=== PATIENT | male | born 1940 | race Caucasian/White ===

== ENCOUNTER 2020-05-23 07:29 | Inpatient (IN) | payer MEDICARE, BC ==
[~2020-05-23] VITALS: Ht 165.1 cm; Wt 74.4 kg
--- NOTE | 2020-05-23 08:00 | NUR ---
CALLED DR. PAN
--- NOTE | 2020-05-23 08:14 | NUR ---
MOVE SHEET SUBMITTED AND CALLED FOR DWAIN BED.
[2020-05-23 08:30] LABS: BASOPHILS # (AUTO) 0.1 /CMM (0.0-0.2); EOSINOPHILS % (AUTO) 4.6 % (0.0-6.0); HEMATOCRIT 37 % (39-51); HEMOGLOBIN 12.5 g/dL (13.5-17.5); LYMPHOCYTES % (AUTO) 40.7 % (20.0-44.0); MEAN CORPUSCULAR HGB CONC 34 g/dl (31.0-36.0); MEAN CORPUSCULAR VOLUME 91 fL (80-96); MONOCYTES # (AUTO) 0.8 /CMM (0.1-1.30); MONOCYTES % (AUTO) 10.7 % (2.0-12.0); NEUTROPHILS # (AUTO) 3.2 /CMM (1.8-8.9); PLATELET COUNT (AUTO) 289 /CMM (150-450); RED BLOOD CELL COUNT(AUTO) 4.09 MIL/uL (4.5-6.0); WHITE BLOOD COUNT (AUTO) 7.3 K/uL (4.3-11.0)
[2020-05-23] MEDS ORDERED: CITA20TA16 PO (08:53)
[2020-05-23] MEDS ORDERED: HYDR-4275 PO (08:53)
[2020-05-23] MEDS ORDERED: GABA300C PO (08:53)
[2020-05-23] MEDS ORDERED: MELA3TAB41 PO (08:53)
[2020-05-23] MEDS ORDERED: FOLI0.8C PO (08:53)
[2020-05-23] MEDS ORDERED: ASPI-1169 PO (08:53)
[2020-05-23] MEDS ORDERED: METH-406 PO (08:53)
[2020-05-23] MEDS ORDERED: MIRT-121 PO (08:53)
[2020-05-23] MEDS ORDERED: AMLO10TA4 PO (08:53)
--- NOTE | 2020-05-23 09:01 | NUR ---
[facility] CALLED [employer]ELOPER PAGED.
[2020-05-23 09:04] LABS: CALCIUM, SERUM 9.3 mg/dL (8.5-10.1); CREATININE 1.1 mg/dL (0.6-1.3); POTASSIUM 4.1 mmol/L (3.5-5.1)
[2020-05-23] MEDS ORDERED: MORPHINE SULFATE INJ 2 MG/ML DISP.SYRIN ONE (09:15)
[2020-05-23] MEDS ORDERED: MORPHINE SULFATE INJ 2 MG/ML DISP.SYRIN IV ONE (09:30)
--- NOTE | 2020-05-23 09:50 | NUR ---
ASSUMED CARE OF PATIENT. PATIENT IN BED.
--- NOTE | 2020-05-23 09:53 | NUR ---
PATIENT A/OX3, BREATHING EVEN AND UNLABORED, NO SOB NOTED. NEEDS ATTENDED. WILL CONTINUE TO MONITOR.
[2020-05-23] MEDS ORDERED: MAG HYDROX/AL HYDROX/SIMETH 30 ML UDC PO PRN (10:30)
[2020-05-23] MEDS ORDERED: ACETAMINOPHEN 325 MG TABLET PO PRN (10:30)
[2020-05-23] MEDS ORDERED: DOCUSATE SODIUM 100 MG CAPSULE PO PRN (10:30)
[2020-05-23] MEDS ORDERED: ONDANSETRON HCL/PF 4 MG/2 ML VIAL IVP PRN (10:30)
--- NOTE | 2020-05-23 12:07 | NUR ---
PER PATIENT, HE HAD "A COUPLE SIPS OF WATER" SURGERY MADE AWARE. PATIENT SIGNED CONSENTS FORM.
--- NOTE | 2020-05-23 12:32 | NUR ---
PATIENT PICKED UP BY SURGERY TEAM. PATIENT IN STABLE CONDITION. NO DISTRESS NOTED.
--- NOTE | 2020-05-23 12:33 | NUR ---
BELONGINGS LEFT IN THE ER, WILL TRANSFER TO INPATIENT ROOM.
[2020-05-23] MEDS ORDERED: MIDAZOLAM HCL 2 MG/2ML VIAL ONE (12:57)
[2020-05-23] MEDS ORDERED: FENTANYL PF 100MCG/2ML AMPUL ONE (12:57)
[2020-05-23] MEDS: GABAPENTIN 300 MG CAPSULE PO SCH ×2 (13:00→17:31)
[2020-05-23] MEDS ORDERED: LIDOCAINE 1% INJ 50 ML MDV IJ ONE (13:03)
[2020-05-23] MEDS ORDERED: IOHEXOL 240MG/ML 50 ML IV ONE (13:03)
[2020-05-23] MEDS ORDERED: HYDR-3973 PO (14:07)
--- NOTE | 2020-05-23 15:30 | NUR ---
RECEIVED PATIENT FROM RECOVERY. NURSE GAVE BEDSIDE REPORT FOR CONTINUATION OF CARE. VITAL SIGNS WITHIN NORMAL LIMITS
--- NOTE | 2020-05-23 15:42 | NUR ---
[facility] POSITIVE ON R ANALY Addendum: 05/23/20 at 1640 by WISAM TALLEY RN WRONG PATIENT
[2020-05-23 17:26] VITALS: BP 149/76
--- NOTE | 2020-05-23 18:47 | NUR ---
RN CLOSING NOTE PATIENT CURRENTLY IN BED, RESTING. PATIENT CURRENTLY ON ROOM AIR, SATURATING 97% AT THIS TIME. NO S/S OF RESPIRATORY DISTRESS. ALERT/ORIENTED X2. PATIENT SET UP ON CHARGE NURSE, NSR AT THIS TIME. R HAND IV SALINE LOCK. PATIENT DENIES PAIN AT THIS TIME. WILL ENDORSE TO SURGICAL CORSETIER NURSE FOR EDITH.
--- NOTE | 2020-05-23 19:30 | NUR ---
RN NOTE RECEIVED PATIENT IN BED, AO X 4, IN NO S/SX OF ACUTE DISTRESS AT THIS TIME. NO SOB NOTED. PATIENT'S BREATHING IS EVEN AND UNLABORED. SATURATION AT 98% ON ROOM AIR. PATIENT ON TELE MONITOR, READING V-PACING, HR IS 66. NOTED IV SITE AT R HAND, PATENT AND FLUSHING WELL, NO S/S OF INFECTION OR INFILTRATION. POST OPERATIVE WOUND DRESSING AT L CHEST WALL DRY AND INTACT. SLING NOTED AT EVAN. SAFETY MEASURES IMPLEMENTED. PATIENT BED ALARM IS ON. HEAD OF BED ELEVATED. BED IS LOCKED, IN LOWEST POSITION AND SIDE RAILS UP. CALL LIGHT WITHIN REACH OF THE PATIENT. WILL CONTINUE TO MONITOR AND REASSESS FOR ANY CHANGES.
[2020-05-23 20:00] VITALS: BP 150/95
[2020-05-23] MEDS: HYDROCODONE/APAP 5/325MG TABLET PO PRN (21:54)
[2020-05-23] MEDS ORDERED: MELATONIN 12 MG PO SCH (22:00)
[2020-05-23] MEDS ORDERED: AMLODIPINE BESYLATE 10 MG TABLET PO SCH (22:00)
[2020-05-24] VITALS: BP 143/54
[2020-05-24 04:00] VITALS: BP 103/51
--- NOTE | 2020-05-24 07:45 | NUR ---
RN OPENING NOTES PRESENT IN BED, A/OX4, ON ROOM AIR, SPO2 IS 99%, IV ON R ARM LINE PATENT AND FLUSHED, PACING SR ON TELE-MONITOR , HR 63. DENIES DISCOMFORT, SAFETY MEASURES IN PLACE, CALL LIGHT IN REACH, WILL CONT OM MONITOR
[2020-05-24 08:00] VITALS: BP 123/57
[2020-05-24] MEDS: GABAPENTIN 300 MG CAPSULE PO SCH (08:13)
[2020-05-24] MEDS: HYDROCODONE/APAP 5/325MG TABLET PO PRN (08:43)
[2020-05-24] MEDS ORDERED: METHOCARBAMOL (750MG) 750 MG TABLET PO SCH (09:00)
[2020-05-24] MEDS ORDERED: CITALOPRAM HYDROBROMIDE 20 MG TABLET PO SCH ×2 (09:00)
[2020-05-24] MEDS ORDERED: FOLIC ACID 1 MG TABLET PO SCH ×2 (09:00)
[2020-05-24] MEDS ORDERED: ASPIRIN 81 MG TAB.CHEW PO SCH (09:00)
[2020-05-24] MEDS ORDERED: METHOCARBAMOL (500MG) 500 MG TABLET PO SCH (09:00)
[2020-05-24] MEDS ORDERED: MIRTAZAPINE 15 MG TABLET PO SCH (09:00)
--- NOTE | 2020-05-24 12:01 | NUR ---
Report given to MARII Ortiz via phone ([phone]), discharge instructions and paperwork given to patient, awaiting for transportation at 1300
--- NOTE | 2020-05-24 12:53 | NUR ---
Discharge to facility, with [facility], confirmed patient ID, destination, VS taken, transferred to [facility], belongings included, IV line nd ID bands removed
== END 2020-05-24 13:02 | DRG 243 ==
LOC: ER 07:32 → TELE 13:00 → TELE1 15:49
PROVIDERS: ADMIT Registered Nurse; ATTEND Registered Nurse
PROC: 0JH606Z Insertion of Pacemaker, Dual Chamber into Chest Subcutaneous Tissue and Fascia, Open Approach (ICD-10-PCS; principal; 2020-05-23)
PROC: 02HK3JZ Insertion of Pacemaker Lead into Right Ventricle, Percutaneous Approach (ICD-10-PCS; 2020-05-23)
PROC: 02H63JZ Insertion of Pacemaker Lead into Right Atrium, Percutaneous Approach (ICD-10-PCS; 2020-05-23)
DX: I44.2 Atrioventricular block, complete (principal); I13.0 Hypertensive heart and chronic kidney disease with heart failure and stage 1 through stage 4 chronic kidney disease, or unspecified chronic kidney disease; I50.32 Chronic diastolic (congestive) heart failure; N18.9 Chronic kidney disease, unspecified; Z86.73 Personal history of transient ischemic attack (TIA), and cerebral infarction without residual deficits; R29.6 Repeated falls; I87.2 Venous insufficiency (chronic) (peripheral); I35.1 Nonrheumatic aortic (valve) insufficiency; Z20.822 Contact with and (suspected) exposure to COVID-19
CPT/HCPCS: 36415; 71045-TC; 80048-TC; 84484-TC; 85025-TC; 87081-TC; C9803; G0378; J0690; J2250; J2270; J3010; J3490; Q9966; U0003